=== PATIENT | male | born 1960 | race Caucasian/White ===

== ENCOUNTER 2017-03-22 17:05 | Inpatient (IN) | payer OTHER ==
[~2017-03-22] VITALS: Ht 182.9 cm; Wt 90.0 kg
[~2017-03-22 17:05] MED LIST: ABILIFY5 MG PO; ACULAR 0.5100 DROP/5 RIGHT EYE; ADVAIR HFA120 INHAL1 IH; ADVIL,NUPRIN,M200 MG PO; AMLODIPINE BESY10 MG PO; ANALGESIC325 M1 PO; ASPIR-LOW81 MG PO; ASPIR-TRIN325 M1 PO; ASPIRIN EC325 M1 PO; ASPIRIN EC325 MG PO; ASPIRIN325 MG PO; ASPIRIN81 M2 PO; ATHENOL325 MG PO; ATIVAN1 MG PO; AUGMENTIN875 MG PO; B12 5,000 MCG1 EACH; BUSPAR15 MG PO; BUSPAR7.5 MG PO; BUSPIRONE HCL10 MG PO; BUSPIRONE HCL15 MG PO; CARAFATE1 GM PO; CARDURA4 MG PO; CELEBREX200 MG PO; CENTRUM SILVER1 EAC1 PO; COLACE100 MG PO; COMBIVENT INH14.7 GM IH; COMBIVENT RESPIM4 GM IH; COMBIVENT200 INHALA IH; CRESTOR20 MG PO; CYANOCOBALAM1000 MCG PO; CYMBALTA60 MG PO; DELTASONE20 M1 PO; DESYREL100 MG PO; DEXILANT60 MG PO; DOXAZOSIN MESYLA4 MG PO; DULERA 100 MCG/13 GM IH; DULERA 200 MCG/13 GM IH; ENDOCET 5-3251 EAC1 PO; FAMOTIDINE40 M2 PO; FISH OIL 1,2001 EAC4; FISH OIL 1,2001 EAC4 PO; FLEXERIL10 MG PO; FLONASE ALLERG9.9 ML BOTH NARES; FLONASE16 G1 BOTH NARES; FLOVENT 11120 INHALA BOTH NARES; FLOVENT 11120 INHALA IH; GABAPENTIN600 MG PO; GABAPENTIN800 MG PO; HYDROXYZINE PAM25 MG PO; Humibid LA,Mucinex PO; IBUPROFEN200 M1 PO; IBUPROFEN400 MG PO; ILOTYCIN1 GM BOTH EYES; INDOCIN25 MG PO; LATUDA40 MG PO; LATUDA60 MG PO; LATUDA80 MG PO; LEVAQUIN500 MG PO; LISINOPRIL10 MG PO; LITE COAT ASPI325 M1 PO; LORAZEPAM1 MG PO; MEDROL DOSEPAK4 MG PO; MELOXICAM15 MG PO; MEN'S MULTI-VI1 EACH PO; METHYLIN ER10 MG PO; METHYLPHENIDATE10 MG PO; METOPROLOL SUC100 MG PO; METOPROLOL SUCC50 MG PO; METOPROLOL TAR100 MG PO; MOTRIN800 MG PO; MULTIPLE VITAM1 EAC1 PO; MULTIVITAMIN1 EAC2 PO; NAPROSYN500 MG PO; NAPROXEN500 MG PO; NEURONTIN800 MG PO; NIACIN 500 MG1 EACH PO; NIACIN500 M1 PO; NIACIN500 M4 PO; NIACIN500 MG PO; NIASPAN,SLO-N1000 MG PO; NICOTINE PATCH1 EAC2 TD; NITROGLYCERIN0.4 MG SL; NITROSTAT0.4 MG SL; NON-ASPIRIN PA325 MG PO; NORCO 5/3251 TABLET PO; NORVASC10 MG PO; NORVASC2.5 MG PO; NORVASC5 MG PO; OMEGA 3-6-91200 MG PO; OMEPRAZOLE20 M2 PO; OMEPRAZOLE20 MG PO; OXCARBAZEPINE300 MG PO; OXCARBAZEPINE600 MG PO; OXYCODON-ACETA1 EAC1 PO; OXYCODONE HCL10 MG PO; OXYCODONE10 MG PO; PERCOCET 10/1 TABLET PO; PERCOCET 5/31 TABLET PO; PRAVACHOL20 MG PO; PRAVACHOL80 MG PO; PRAVASTATIN SOD80 MG PO; PREDNISONE10 MG PO; PREDNISONE20 MG PO; PREDNISONE50 MG PO; PRILOSEC20 MG PO; PRINIVIL10 MG PO; PROAIR HFA8.5 GM IH; QUETIAPINE FUM100 MG PO; RESTORIL30 MG PO; SERTRALINE HCL50 MG PO; SIMVASTATIN20 M1 PO; SKELAXIN800 MG PO; SOMA350 MG PO; SPIRIVA RESPIMAT4 GM IH; SUCRALFATE1 GM PO; SYMBICORT60 INHALA1 IH; SYMBICORT60 INHALAT IH; Sterapred DS 10 mg U PO; TAMSULOSIN HCL0.4 MG PO; TEMAZEPAM15 MG PO; TEMAZEPAM30 MG PO; TOPROL XL100 MG PO; TOPROL XL50 MG PO; TRAMADOL HCL50 MG PO; TRAZODONE HCL100 MG PO; TRILEPTAL150 MG PO; TRILEPTAL300 MG PO; TYLENOL REGULA325 MG PO; ULTRAM50 MG PO; VALIUM5 MG PO; VENTOLIN HFA18 GM IH; VENTOLIN5 MG/1 ML; VICODIN 5-3001 EACH PO; VITAMIN B-6100 MG PO; VITAMIN B12-FO1 EACH PO; XANAX1 MG PO; ZITHROMAX250 MG PO; ZITHROMAX500 MG PO; ZOFRAN4 MG PO; ZOLOFT50 M1 PO; ZOLPIDEM TARTRA10 MG PO; Zithromax PO; [UNRECOGNIZED DRUG - REMARK]
[2017-03-22 17:58] LABS: BASE EXCESS -1.7 mEq/L (-3 to +3); BICARBONATE 22.1 mEq/L (22-26); CARBOXY HGB 2.5 % (0-5); COMMENTS - BLOOD GASES A+C+; DEVICE NRBM; FI02 100 %; METHEMOGLOBIN 1.4 % (0-1.5); O2 FLOW 15 L/MIN; PCO2 34 mm Hg (35-45); PO2 125 mm Hg (80-100); SITE RR; pH 7.42 (7.35-7.45)
[2017-03-22 18:08] LABS: EOSINOPHIL (%) 0 % (0-5); HEMATOCRIT 42.4 % (38.0-50.0); IMMATURE GRANULOCYTE (%) 0.4 % (0.0-0.7); IMMATURE GRANULOCYTE COUNT 0.1 K/uL; INSTRUMENT ABS NEUTROPHIL CT 16.8 K/uL; LYMPHOCYTE COUNT 0.6 K/uL (1.0-2.8); MCH 30.4 PG (29.0-34.0); MCV 89.6 FL (86-99); MEAN PLAT.VOLUME 9.1 uM^3 (9.0-12.4); MONOCYTE (%) 6.1 % (3-12); MONOCYTE COUNT 1.1 K/uL (0-0.8); NEUTROPHIL (%) 90.3 % (45-76); NEUTROPHIL COUNT 16.8 K/uL (1.8-6.4); PLATELET COUNT 258 K/uL (156-360); RBC DIS.WIDTH-SD 45.9 % (39-53); RED BLOOD COUNT 4.73 M/uL (4.00-5.50); WHITE BLOOD COUNT 18.6 K/uL (4.1-10.2)
[2017-03-22 18:17] LABS: CHLORIDE 106 mEq/L (99-109); SODIUM 142 mEq/L (136-147)
[2017-03-22 18:19] LABS: GLUCOSE 111 mg/dL (70-99)
[2017-03-22 18:20] LABS: ANION GAP 16 MEQ/L (2-14)
[2017-03-22 18:21] LABS: TOTAL BILIRUBIN 1.1 mg/dL (0.0-1.0)
[2017-03-22 18:22] LABS: SERUM ETHYL ALCOHOL < 10 mg/dL
[2017-03-22 18:23] LABS: GFR ESTIMATE (CALCULATED) > 59 mL/min/
[2017-03-22 18:24] LABS: ALKALINE PHOSPHATASE 46 IU/L (3-129)
[2017-03-22 18:25] LABS: UREA NITROGEN (BUN) 12 mg/dL (9-23)
[2017-03-22 18:26] LABS: SALICYLATE < 5.0 MG/DL (15-30)
[2017-03-22 18:27] LABS: CREATINE KINASE 570 IU/L (1-294); TOTAL CK 570 IU/L (1-294)
[2017-03-22 18:29] LABS: TROP-I INTERPRETATION NEGATIVE; TROPONIN-I 0.07 ng/mL (0.0-0.30)
[2017-03-22 18:34] LABS: CK-MB 5.5 ng/mL (0.0-4.9)
[2017-03-22 19:11] LABS: ADD MIUA? YES; BILIRUBIN NEGATIVE; BLOOD NEGATIVE; COLOR YELLOW ((YELLOW)); GLUCOSE (STRIP) NEGATIVE; KETONES 5; LEUKOCYTES NEGATIVE; NITRITE NEGATIVE; PROTEIN (STRIP) NEGATIVE; SPECIFIC GRAVITY 1.026 (1.000-1.030); UROBILINOGEN 0.2 MG/DL (0.2-1.0)
[2017-03-22 19:19] LABS: ADD MEDTOX COMMENT Y; AMPHETAMINE NEGATIVE (500 ng/mL); BARBITURATES NEGATIVE (200 ng/mL); BENZODIAZEPINES NEGATIVE (150 ng/mL); COCAINE NEGATIVE (150 ng/mL); INTERNAL CONTROLS VALID? YES; METHADONE NEGATIVE (200 ng/mL); METHAMPHETAMINE NEGATIVE (500 ng/mL); OPIATES (MORPHINE) NEGATIVE (100 ng/mL); OXYCODONE NEGATIVE (100 ng/mL); PHENCYCLIDINE NEGATIVE (25 ng/mL); PROPOXYPHENE NEGATIVE (300 ng/mL); THC CANNABINOIDS PRESUMPTIVE POSITIVE (50 ng/mL); TRICYCLIC ANTIDEPRESSANTS NEGATIVE (300 ng/mL)
[2017-03-22 19:22] LABS: BACTERIA NONE SEEN /HPF; EPITHELIAL CELLS RARE /HPF; HYALINE CASTS 0-5 /LPF; MUCUS TRACE /LPF; RED BLOOD CELLS NONE SEEN /HPF (0-5); UCUL ADDED? NO; WHITE BLOOD CELLS 0-5 /HPF (0-5)
[2017-03-22 20:00] LABS: BASE EXCESS -4.6 mEq/L (-3 to +3); BICARBONATE 23.2 mEq/L (22-26); COMMENTS - BLOOD GASES A+C+; METHEMOGLOBIN 1.5 % (0-1.5); PCO2 53 mm Hg (35-45); PO2 233 mm Hg (80-100); SITE RR; pH 7.25 (7.35-7.45)
[2017-03-22 20:01] LABS: DEVICE 980; FI02 100 %; MECHANICAL RATE 14 resp/min; MODE AC; PEEP 5 CM/H20; TIDAL VOLUME 550 ML; TOTAL RESP RATE 19 resp/min
[2017-03-22 20:16] LABS: APPEARANCE CLEAR/COLORLESS
[2017-03-22 20:22] LABS: RED CELL AREA COUNTED 18; RED CELL COUNT 0 /MM^3 (0-1); RED CELL DILUTION 1; WBC AREA COUNTED 18; WBC DILUTION 1; WHITE CELL COUNT 1 /MM^3 (0-5); WHITE CELL RAW COUNT 2
[2017-03-22 20:44] LABS: CSF EOSINOPHILS 0 % (0-25); MONONUCLEAR WBC'S 100 % (50-90); POLYNUCLEAR WBC'S 0 % (0-3)
[2017-03-22 21:30] VITALS: BP 121/60
[2017-03-22 21:45] VITALS: BP 114/74
[2017-03-22 22:00] VITALS: BP 120/99
[2017-03-22] MEDS ORDERED: GABAPENTIN800 MG PO (22:34)
[2017-03-22] MEDS ORDERED: ASPIR-LOW81 MG PO (22:37)
[2017-03-22] MEDS ORDERED: OXCARBAZEPINE300 MG PO (22:37)
[2017-03-22] MEDS ORDERED: METOPROLOL SUCC50 MG PO (22:39)
[2017-03-22] MEDS ORDERED: LISINOPRIL10 MG PO (22:39)
[2017-03-22] MEDS ORDERED: PRAVACHOL80 MG PO (22:40)
[2017-03-22] MEDS ORDERED: DULOXETINE HCL60 MG PO (22:41)
[2017-03-22] MEDS ORDERED: AMLODIPINE BESYL5 MG PO (22:42)
[2017-03-22] MEDS ORDERED: NIACIN500 M4 PO (22:42)
[2017-03-22] MEDS ORDERED: BUPROPION HCL75 MG PO (22:43)
[2017-03-22] MEDS ORDERED: LATUDA80 MG PO (22:44)
[2017-03-22] MEDS ORDERED: COMPLETE M9 MG/15 ML PO (22:45)
[2017-03-22] MEDS ORDERED: SEROQUEL100 MG PO (22:46)
[2017-03-22] MEDS ORDERED: OMEPRAZOLE20 MG PO (22:47)
[2017-03-22] MEDS ORDERED: NITROSTAT0.4 MG SL (22:47)
[2017-03-22] MEDS ORDERED: FLONASE16 G1 BOTH NARES (22:50)
[2017-03-22] MEDS ORDERED: VENTOLIN HFA18 GM IH (22:51)
[2017-03-22] MEDS ORDERED: SYMBICORT60 INHALAT IH (22:53)
[2017-03-22] MEDS ORDERED: COMBIVENT RESPIM4 GM IH (22:54)
[2017-03-22 23:00] VITALS: BP 100/58
[2017-03-22 23:13] LABS: METH RESISTANT S AUREUS PCR NEGATIVE (NEGATIVE)
[2017-03-22 23:14] LABS: PROBE CHECK PASS; SPECIMEN PROCESSING CONTROL PASS
[2017-03-23] VITALS (24 sets, daily range): BP systolic 95–145; BP diastolic 58–88
[2017-03-23 05:02] LABS: CHLORIDE 111 mEq/L (99-109); POTASSIUM 4.4 mEq/L (3.7-5.4); SODIUM 141 mEq/L (136-147)
[2017-03-23 05:03] LABS: GLUCOSE 115 mg/dL (70-99)
[2017-03-23 05:05] LABS: ANION GAP 8 MEQ/L (2-14)
[2017-03-23 05:07] LABS: GFR ESTIMATE (CALCULATED) > 59 mL/min/
[2017-03-23 05:08] LABS: UREA NITROGEN (BUN) 11 mg/dL (9-23)
[2017-03-23 05:10] LABS: CREATINE KINASE 593 IU/L (1-294); TOTAL CK 593 IU/L (1-294)
[2017-03-23 05:14] LABS: BASE EXCESS -1.2 mEq/L (-3 to +3); BICARBONATE 23.6 mEq/L (22-26); CARBOXY HGB 1.4 % (0-5); METHEMOGLOBIN 1.9 % (0-1.5); PO2 227 mm Hg (80-100)
[2017-03-23 05:15] LABS: COMMENTS - BLOOD GASES A+C+; DEVICE VENT; FI02 80 %; MECHANICAL RATE 22 resp/min; MODE AC; PCO2 39 mm Hg (35-45); PEEP 5 CM/H20; SITE RR; TIDAL VOLUME 550 ML; TOTAL RESP RATE 22 resp/min; pH 7.39 (7.35-7.45)
[2017-03-23 06:09] LABS: ABS NEUTROPHIL COUNT 18.4; ANISOCYTOSIS 1+; BAND NEUTROPHILS 9.7 % (0-8.0); EOSINOPHIL ABS CT 0.2; EOSINOPHILS 0.9 % (0-5.0); HEMATOCRIT 37.2 % (38.0-50.0); INSTRUMENT ABS NEUTROPHIL CT 17.7 K/uL; LYMPHOCYTES 1.8 % (15.0-45.0); MCH 30.4 PG (29.0-34.0); MCHC 33.1 G/DL (30.0-36.0); MCV 91.9 FL (86-99); MEAN PLAT.VOLUME 9.2 uM^3 (9.0-12.4); MICROCYTOSIS 1+; OVALOCYTES 1+; PLAT.SUFFICIENCY ADEQUATE; PLATELET COUNT 210 K/uL (156-360); RBC DIS.WIDTH-CV 14.5 % (11.8-14.6); RBC DIS.WIDTH-SD 49.2 % (39-53); RED BLOOD COUNT 4.05 M/uL (4.00-5.50); SEG.NEUTROPHILS 84.1 % (46.0-76.0); WHITE BLOOD COUNT 19.6 K/uL (4.1-10.2)
[2017-03-24] VITALS (21 sets, daily range): BP systolic 102–140; BP diastolic 57–83
[2017-03-24 09:28] LABS: HEMATOCRIT 33.1 % (38.0-50.0); MCH 31.4 PG (29.0-34.0); MCHC 33.8 G/DL (30.0-36.0); MCV 92.7 FL (86-99); MEAN PLAT.VOLUME 9.8 uM^3 (9.0-12.4); PLATELET COUNT 165 K/uL (156-360); RBC DIS.WIDTH-CV 14.5 % (11.8-14.6); RBC DIS.WIDTH-SD 49.1 % (39-53); RED BLOOD COUNT 3.57 M/uL (4.00-5.50)
[2017-03-24 09:29] LABS: WHITE BLOOD COUNT 12.5 K/uL (4.1-10.2)
[2017-03-24 09:52] LABS: ALKALINE PHOSPHATASE 35 IU/L (3-129); ANION GAP 6 MEQ/L (2-14); CHLORIDE 109 MEQ/L (99-109); GFR ESTIMATE (CALCULATED) > 59 mL/min/; GLUCOSE 105 mg/dL (70-99); MAGNESIUM 1.8 mg/dl (1.3-2.7); POTASSIUM 3.6 MEQ/L (3.7-5.4); SAMPLE HEMOLYSIS CHECK 0; SAMPLE ICTERIC CHECK 0; SAMPLE LIPEMIA CHECK 0; SODIUM 140 MEQ/L (136-147); TOTAL BILIRUBIN 0.4 MG/DL (0.0-1.0); UREA NITROGEN (BUN) 8 mg/dL (9-23)
[2017-03-24 10:27] LABS: BASE EXCESS -0.7 mEq/L (-3 to +3); BICARBONATE 24.2 mEq/L (22-26); METHEMOGLOBIN 1.5 % (0-1.5); PCO2 40 mm Hg (35-45); pH 7.39 (7.35-7.45)
[2017-03-24 10:28] LABS: COMMENTS - BLOOD GASES NAC+; CONTINUOUS POS AIRWAY PRESSURE 5 cm H2O; DEVICE 980; FI02 40 %; MODE TUBE COMPENSATION; PO2 64 mm Hg (80-100); SITE RR; TOTAL RESP RATE 24 resp/min
[2017-03-25 03:15] VITALS: BP 138/72
[2017-03-25 06:57] LABS: EOSINOPHIL (%) 0.7 % (0-5); EOSINOPHIL COUNT 0.1 K/uL (0-0.3); HEMATOCRIT 35.6 % (38.0-50.0); IMMATURE GRANULOCYTE (%) 0.6 % (0.0-0.7); IMMATURE GRANULOCYTE COUNT 0.1 K/uL; INSTRUMENT ABS NEUTROPHIL CT 11.9 K/uL; MCH 29.8 PG (29.0-34.0); MCHC 32.3 G/DL (30.0-36.0); MCV 92.2 FL (86-99); MEAN PLAT.VOLUME 9.3 uM^3 (9.0-12.4); MONOCYTE (%) 3.5 % (3-12); MONOCYTE COUNT 0.5 K/uL (0-0.8); NEUTROPHIL (%) 87.7 % (45-76); NEUTROPHIL COUNT 11.9 K/uL (1.8-6.4); PLATELET COUNT 199 K/uL (156-360); RBC DIS.WIDTH-CV 13.9 % (11.8-14.6); RBC DIS.WIDTH-SD 47.4 % (39-53); RED BLOOD COUNT 3.86 M/uL (4.00-5.50); WHITE BLOOD COUNT 13.6 K/uL (4.1-10.2)
[2017-03-25 07:54] LABS: ANION GAP 7 MEQ/L (2-14); CHLORIDE 106 MEQ/L (99-109); GFR ESTIMATE (CALCULATED) > 59 mL/min/; GLUCOSE 110 mg/dL (70-99); POTASSIUM 3.6 MEQ/L (3.7-5.4); SAMPLE HEMOLYSIS CHECK 0; SAMPLE ICTERIC CHECK 0; SAMPLE LIPEMIA CHECK 0; SODIUM 140 MEQ/L (136-147); UREA NITROGEN (BUN) 4 mg/dL (9-23)
[2017-03-25 09:30] VITALS: BP 132/74
[2017-03-25 12:09] VITALS: BP 132/80
[2017-03-25 16:07] VITALS: BP 150/71
[2017-03-25 19:43] VITALS: BP 162/79
[2017-03-25 23:00] LABS: INFLUENZA A VIRAL ANTIGEN NEGATIVE; INFLUENZA B VIRAL ANTIGEN NEGATIVE
[2017-03-26 00:11] VITALS: BP 134/76
[2017-03-26 04:29] VITALS: BP 125/61
[2017-03-26 07:30] LABS: EOSINOPHIL (%) 1.7 % (0-5); EOSINOPHIL COUNT 0.2 K/uL (0-0.3); HEMATOCRIT 33.2 % (38.0-50.0); IMMATURE GRANULOCYTE (%) 0.6 % (0.0-0.7); IMMATURE GRANULOCYTE COUNT 0.1 K/uL; INSTRUMENT ABS NEUTROPHIL CT 8.5 K/uL; LYMPHOCYTE COUNT 1.1 K/uL (1.0-2.8); MCH 30.3 PG (29.0-34.0); MCHC 33.1 G/DL (30.0-36.0); MCV 91.5 FL (86-99); MEAN PLAT.VOLUME 9.4 uM^3 (9.0-12.4); MONOCYTE (%) 5.3 % (3-12); MONOCYTE COUNT 0.6 K/uL (0-0.8); NEUTROPHIL (%) 81.2 % (45-76); NEUTROPHIL COUNT 8.5 K/uL (1.8-6.4); PLATELET COUNT 206 K/uL (156-360); RBC DIS.WIDTH-CV 13.3 % (11.8-14.6); RBC DIS.WIDTH-SD 44.7 % (39-53); RED BLOOD COUNT 3.63 M/uL (4.00-5.50); WHITE BLOOD COUNT 10.4 K/uL (4.1-10.2)
[2017-03-26 07:57] VITALS: BP 140/82
[2017-03-26 07:58] LABS: ANION GAP 8 MEQ/L (2-14); CHLORIDE 103 MEQ/L (99-109); GFR ESTIMATE (CALCULATED) > 59 mL/min/; GLUCOSE 102 mg/dL (70-99); MAGNESIUM 1.8 mg/dl (1.3-2.7); POTASSIUM 3.8 MEQ/L (3.7-5.4); SAMPLE HEMOLYSIS CHECK 0; SAMPLE ICTERIC CHECK 0; SAMPLE LIPEMIA CHECK 0; SODIUM 138 MEQ/L (136-147); UREA NITROGEN (BUN) 6 mg/dL (9-23)
[2017-03-26 11:48] VITALS: BP 124/62
[2017-03-26 15:10] VITALS: BP 139/85
[2017-03-26 23:26] VITALS: BP 127/75
[2017-03-27 06:56] VITALS: BP 127/61
[2017-03-27 07:16] LABS: EOSINOPHIL (%) 3.1 % (0-5); EOSINOPHIL COUNT 0.2 K/uL (0-0.3); HEMATOCRIT 36.8 % (38.0-50.0); IMMATURE GRANULOCYTE (%) 1.5 % (0.0-0.7); IMMATURE GRANULOCYTE COUNT 0.1 K/uL; INSTRUMENT ABS NEUTROPHIL CT 4.5 K/uL; LYMPHOCYTE COUNT 1.6 K/uL (1.0-2.8); MCHC 33.4 G/DL (30.0-36.0); MCV 89.8 FL (86-99); MONOCYTE (%) 10.6 % (3-12); MONOCYTE COUNT 0.8 K/uL (0-0.8); NEUTROPHIL (%) 62.9 % (45-76); NEUTROPHIL COUNT 4.5 K/uL (1.8-6.4); PLATELET COUNT 252 K/uL (156-360); RBC DIS.WIDTH-SD 43.2 % (39-53)
[2017-03-27 07:19] VITALS: BP 127/61
[2017-03-27 07:23] LABS: WHITE BLOOD COUNT 7.2 K/uL (4.1-10.2)
[2017-03-27 07:33] LABS: ANION GAP 10 MEQ/L (2-14); CHLORIDE 98 MEQ/L (99-109); GFR ESTIMATE (CALCULATED) > 59 mL/min/; GLUCOSE 96 mg/dL (70-99); MAGNESIUM 1.9 mg/dl (1.3-2.7); POTASSIUM 3.9 MEQ/L (3.7-5.4); SAMPLE HEMOLYSIS CHECK 0; SAMPLE ICTERIC CHECK 0; SAMPLE LIPEMIA CHECK 0; SODIUM 136 MEQ/L (136-147); UREA NITROGEN (BUN) 6 mg/dL (9-23)
[2017-03-27 08:52] LABS: INTERNAL CONTROL VALID? YES
[2017-03-27] MEDS ORDERED: LEVAQUIN750 MG PO (12:15)
== END 2017-03-27 14:51 | disposition home or self-care (01) | DRG 871 ==
LOC: EME → EDBD 17:05 → EDOF 21:09 → 4WEST 21:09 → 4EAST 03-24 21:44 → 5EAST 03-26 13:16
PROVIDERS: Emergency Medicine; Internal Medicine; Internal Medicine Nephrology; Surgery Surgical Critical Care
PROC: 0BH17EZ Insertion of Endotracheal Airway into Trachea, Via Natural or Artificial Opening (ICD-10-PCS; principal; 2017-03-22)
PROC: 5A1945Z Respiratory Ventilation, 24-96 Consecutive Hours (ICD-10-PCS; principal; 2017-03-22)
PROC: 009U3ZX Drainage of Spinal Canal, Percutaneous Approach, Diagnostic (ICD-10-PCS; principal; 2017-03-22)
DX: A41.9 Sepsis, unspecified organism (principal); J69.0 Pneumonitis due to inhalation of food and vomit; J96.02 Acute respiratory failure with hypercapnia; J96.01 Acute respiratory failure with hypoxia; G93.41 Metabolic encephalopathy; T43.591A Poisoning by other antipsychotics and neuroleptics, accidental (unintentional), initial encounter; M62.82 Rhabdomyolysis; F10.10 Alcohol abuse, uncomplicated; Y90.0 Blood alcohol level of less than 20 mg/100 ml; I10 Essential (primary) hypertension; I25.10 Atherosclerotic heart disease of native coronary artery without angina pectoris; J44.9 Chronic obstructive pulmonary disease, unspecified; J45.909 Unspecified asthma, uncomplicated; E78.5 Hyperlipidemia, unspecified; F32.9 Major depressive disorder, single episode, unspecified; K21.9 Gastro-esophageal reflux disease without esophagitis; F17.210 Nicotine dependence, cigarettes, uncomplicated; Z79.82 Long term (current) use of aspirin
CPT/HCPCS: 36600; 70450; 71010; 71260; 72125; 74177; 80048; 80053; 80202; 81003; 82550; 82553; 82803; 82945; 83605; 83735; 84100; 84157; 84484; 84999; 85025; 85027; 87040; 87070; 87205; 87449; 87502; 87641; 87899; 89051; 93005; 94002; 94003; 94640; 94640 76; 94760; 94799; 99202; 99281; 99285; G0480; J0330; J0696; J1170; J1644; J2060; J2543; J2704; J3370; J3475; J3480; J7030; J7050; J7120; S0028; S0030

== ENCOUNTER 2017-04-22 22:36 | Inpatient (IN) | payer OTHER ==
[~2017-04-22] VITALS: Ht 177.8 cm; Wt 75.0 kg
[~2017-04-22 22:36] MED LIST changes: +AMLODIPINE BESYL5 MG PO; +BUPROPION HCL75 MG PO; +COMPLETE M9 MG/15 ML PO; +DULOXETINE HCL60 MG PO; +LEVAQUIN750 MG PO; +SEROQUEL100 MG PO
[2017-04-22 23:00] LABS: HEMATOCRIT 38.6 % (38.0-50.0); MCH 30.7 PG (29.0-34.0); MCHC 33.4 G/DL (30.0-36.0); MCV 91.9 FL (86-99); MEAN PLAT.VOLUME 9.1 uM^3 (9.0-12.4); PLATELET COUNT 188 K/uL (156-360); RBC DIS.WIDTH-CV 13.7 % (11.8-14.6); RBC DIS.WIDTH-SD 46.2 % (39-53); WHITE BLOOD COUNT 8.3 K/uL (4.1-10.2)
[2017-04-22 23:09] LABS: CHLORIDE 101 mEq/L (99-109); POTASSIUM 3.4 mEq/L (3.7-5.4); SODIUM 135 mEq/L (136-147)
[2017-04-22 23:11] LABS: GLUCOSE 93 mg/dL (70-99)
[2017-04-22 23:12] LABS: ANION GAP 10 MEQ/L (2-14)
[2017-04-22 23:14] LABS: SERUM ETHYL ALCOHOL < 10 mg/dL
[2017-04-22 23:15] LABS: GFR ESTIMATE (CALCULATED) > 59 mL/min/
[2017-04-22 23:17] LABS: UREA NITROGEN (BUN) 5 mg/dL (9-23)
[2017-04-22 23:18] LABS: SALICYLATE < 5.0 MG/DL (15-30)
[2017-04-22 23:18] LABS: CARBON DIOXIDE (BICARBONATE) 27.9 MEQ/L (20-31)
[2017-04-22] MEDS ORDERED: [UNRECOGNIZED DRUG - REMARK] (23:38)
[2017-04-23 05:38] LABS: ADD MEDTOX COMMENT Y; AMPHETAMINE NEGATIVE (500 ng/mL); BARBITURATES NEGATIVE (200 ng/mL); BENZODIAZEPINES PRESUMPTIVE POSITIVE (150 ng/mL); COCAINE NEGATIVE (150 ng/mL); INTERNAL CONTROLS VALID? YES; METHADONE NEGATIVE (200 ng/mL); METHAMPHETAMINE NEGATIVE (500 ng/mL); OPIATES (MORPHINE) NEGATIVE (100 ng/mL); OXYCODONE NEGATIVE (100 ng/mL); PHENCYCLIDINE NEGATIVE (25 ng/mL); PROPOXYPHENE NEGATIVE (300 ng/mL); THC CANNABINOIDS PRESUMPTIVE POSITIVE (50 ng/mL); TRICYCLIC ANTIDEPRESSANTS PRESUMPTIVE POSITIVE (300 ng/mL)
[2017-04-23 06:19] LABS: BENZODIAZEPINES, URINE SCREEN POSITIVE (200 ng/mL)
[2017-04-23 11:06] VITALS: BP 120/70
[2017-04-23 11:07] VITALS: BP 120/70
[2017-04-23] MEDS ORDERED: XANAX0.5 MG PO (12:11)
[2017-04-23 15:33] VITALS: BP 148/67
[2017-04-24 07:57] VITALS: BP 141/72
[2017-04-24 11:57] VITALS: BP 126/72
[2017-04-24 15:42] VITALS: BP 134/82
== END 2017-04-24 16:08 | disposition home or self-care (01) | DRG 885 ==
LOC: EME → EDBD 22:36 → EDOF 04-23 06:55 → 1WEST 04-23 06:55 → EDOF 04-23 06:58 → 1WEST 04-23 11:06
PROVIDERS: Emergency Medicine
DX: F31.9 Bipolar disorder, unspecified (principal); T42.4X1A Poisoning by benzodiazepines, accidental (unintentional), initial encounter; R41.82 Altered mental status, unspecified; G47.00 Insomnia, unspecified; F10.10 Alcohol abuse, uncomplicated; Y90.0 Blood alcohol level of less than 20 mg/100 ml; E78.5 Hyperlipidemia, unspecified; I10 Essential (primary) hypertension; I25.10 Atherosclerotic heart disease of native coronary artery without angina pectoris; J44.9 Chronic obstructive pulmonary disease, unspecified; K21.9 Gastro-esophageal reflux disease without esophagitis; M19.90 Unspecified osteoarthritis, unspecified site; F17.200 Nicotine dependence, unspecified, uncomplicated
CPT/HCPCS: 71010; 80048; 82803; 83605; 84999; 85027; 90837; 93005; 94640 76; 99202; 99281; 99285; G0480; J2310; J7030

== ENCOUNTER 2018-02-20 17:26 | Emergency (ER) | payer OTHER ==
[~2018-02-20] VITALS: Ht 165.1 cm; Wt 78.7 kg
[~2018-02-20 17:26] MED LIST changes: +XANAX0.5 MG PO; +[UNRECOGNIZED DRUG - REMARK]
[2018-02-20 18:02] LABS: HEMATOCRIT 38.7 % (38.0-50.0); HEMOGLOBIN 13.4 G/DL (12.5-16.6); MCH 31.2 PG (29.0-34.0); MCHC 34.6 G/DL (30.0-36.0); MCV 90.2 FL (86-99); PLATELET COUNT 232 K/uL (156-360); RBC DIS.WIDTH-CV 12.8 % (11.8-14.6); RBC DIS.WIDTH-SD 42.2 % (39-53); RED BLOOD COUNT 4.29 M/uL (4.00-5.50); WHITE BLOOD COUNT 7.9 K/uL (4.1-10.2)
[2018-02-20 18:17] LABS: CHLORIDE 106 mEq/L (99-109); POTASSIUM 3.7 mEq/L (3.7-5.4); SODIUM 142 mEq/L (136-147)
[2018-02-20 18:19] LABS: GLUCOSE 86 mg/dL (70-99)
[2018-02-20 18:22] LABS: CREATININE 0.8 mg/dL (0.6-1.3); GFR ESTIMATE (CALCULATED) > 59 mL/min/ (58.99-99999); SERUM ETHYL ALCOHOL 203 mg/dL
[2018-02-20 18:23] LABS: UREA NITROGEN (BUN) 17 mg/dL (9-23)
[2018-02-21 00:56] VITALS: BP 90/55
== END 2018-02-21 00:57 | disposition home or self-care (01) ==
LOC: EME 17:26
PROVIDERS: Emergency Medicine Emergency Medical Services
DX: F10.129 Alcohol abuse with intoxication, unspecified (principal); R44.0 Auditory hallucinations; Y90.7 Blood alcohol level of 200-239 mg/100 ml; F43.21 Adjustment disorder with depressed mood; Z04.6 Encounter for general psychiatric examination, requested by authority; E78.5 Hyperlipidemia, unspecified; F32.9 Major depressive disorder, single episode, unspecified; F41.9 Anxiety disorder, unspecified; I10 Essential (primary) hypertension; J44.9 Chronic obstructive pulmonary disease, unspecified; K21.9 Gastro-esophageal reflux disease without esophagitis; I25.10 Atherosclerotic heart disease of native coronary artery without angina pectoris; Z85.828 Personal history of other malignant neoplasm of skin; F17.200 Nicotine dependence, unspecified, uncomplicated
CPT/HCPCS: 80048; 85027; 90837; 99281; 99284; G0480; J1630; J2060

== ENCOUNTER 2018-02-28 08:56 | Emergency (ER) | payer OTHER ==
[~2018-02-28] VITALS: Ht 172.7 cm; Wt 77.6 kg
[2018-02-28 09:07] VITALS: BP 136/90
[2018-02-28] MEDS ORDERED: ULTRAM50 MG PO (11:16)
[2018-02-28] MEDS ORDERED: FLEXERIL10 MG PO (11:16)
== END 2018-02-28 11:29 | disposition home or self-care (01) ==
LOC: EME 08:56
DX: S46.912A Strain of unspecified muscle, fascia and tendon at shoulder and upper arm level, left arm, initial encounter (principal); X50.0XXA Overexertion from strenuous movement or load, initial encounter; E78.5 Hyperlipidemia, unspecified; I10 Essential (primary) hypertension; F17.200 Nicotine dependence, unspecified, uncomplicated; F32.9 Major depressive disorder, single episode, unspecified; F41.9 Anxiety disorder, unspecified; J44.9 Chronic obstructive pulmonary disease, unspecified; K21.9 Gastro-esophageal reflux disease without esophagitis; Z85.828 Personal history of other malignant neoplasm of skin
CPT/HCPCS: 73030; 99281; 99284

== ENCOUNTER 2018-04-27 23:58 | Emergency (ER) | payer OTHER ==
[~2018-04-27] VITALS: Ht 177.8 cm; Wt 73.5 kg
[2018-04-28 01:17] LABS: HEMATOCRIT 41.1 % (38.0-50.0); HEMOGLOBIN 14.2 G/DL (12.5-16.6); MCH 32.6 PG (29.0-34.0); MCHC 34.5 G/DL (30.0-36.0); MCV 94.3 FL (86-99); PLATELET COUNT 202 K/uL (156-360); RBC DIS.WIDTH-CV 14.4 % (11.8-14.6); RBC DIS.WIDTH-SD 49.7 % (39-53); RED BLOOD COUNT 4.36 M/uL (4.00-5.50); WHITE BLOOD COUNT 7.3 K/uL (4.1-10.2)
[2018-04-28 01:38] LABS: TROP-I INTERPRETATION NEGATIVE; TROPONIN-I < 0.01 ng/mL (0.0-0.30)
[2018-04-28 01:48] LABS: ALBUMIN 4.2 g/dL (3.2-4.8)
[2018-04-28 01:49] LABS: CHLORIDE 105 mEq/L (99-109); POTASSIUM 3.8 mEq/L (3.7-5.4); SODIUM 143 mEq/L (136-147)
[2018-04-28 01:51] LABS: GLUCOSE 99 mg/dL (70-99); TOTAL PROTEIN 7.1 g/dL (6.4-8.3)
[2018-04-28 01:53] LABS: TOTAL BILIRUBIN 0.3 mg/dL (0.0-1.0)
[2018-04-28 01:54] LABS: ALKALINE PHOSPHATASE 50 IU/L (3-129)
[2018-04-28 01:55] LABS: CREATININE 0.9 mg/dL (0.6-1.3); GFR ESTIMATE (CALCULATED) > 59 mL/min/ (58.99-99999)
[2018-04-28 01:56] LABS: AST (GOT) 46 IU/L (2-34); UREA NITROGEN (BUN) 8 mg/dL (9-23)
[2018-04-28 01:58] LABS: ALT (GPT) 27 IU/L (3-49); LIPASE 104 U/L (1.0-51.0)
[2018-04-28 03:45] LABS: TROP-I INTERPRETATION NEGATIVE; TROPONIN-I 0.01 ng/mL (0.0-0.30)
[2018-04-28 05:09] VITALS: BP 108/68
== END 2018-04-28 05:06 | disposition home or self-care (01) ==
LOC: EME → EDBD 23:58 → EME 04-28 05:06
PROVIDERS: Emergency Medicine
DX: R07.9 Chest pain, unspecified (principal); F10.99 Alcohol use, unspecified with unspecified alcohol-induced disorder; I10 Essential (primary) hypertension; E78.5 Hyperlipidemia, unspecified; J44.9 Chronic obstructive pulmonary disease, unspecified; Z79.82 Long term (current) use of aspirin; F17.200 Nicotine dependence, unspecified, uncomplicated
CPT/HCPCS: 71045; 80053; 83690; 84484; 85027; 93005; 99281; 99285